=== PATIENT | male | born 1955 | race Caucasian/White ===

== ENCOUNTER 2022-12-03 10:13 | Emergency (ER) | payer MEDICAID, SELFPAY ==
[2022-12-03 10:14] VITALS: BP 119/75; PULSE 82; RESP 18; TEMP 36.4; O2SAT 95; BMI 26.1
[2022-12-03 10:34] VITALS: BP 137/77; PULSE 74; RESP 16; O2SAT 95
--- NOTE | 2022-12-03 10:38 | EKG12_ITS ---
Test Reason : GEN ILLNESS Blood Pressure : / mmHG Vent. Rate : 072 BPM Atrial Rate : 072 BPM P-R Int : 200 ms QRS Dur : 096 ms QT Int : 390 ms P-R-T Axes : 039 -39 046 degrees QTc Int : 427 ms Normal sinus rhythm Left axis deviation Abnormal ECG Confirmed by JOSE TROTTER, JOAN ([id number]), story editor ERYN GONZALEZ ([id number]) on 12/06/2022 9:18:26 AM Referred By: Confirmed By:JOAN GARCIA MD
--- NOTE | 2022-12-03 10:39 | EDS_ITS ---
HPI History of Present Illness Chief Complaint: General Illness Detail of Chief Complaint: Twitching in legs and numbness and tingling in legs Informant: patient and family Narrative Narrative: Bar presents to the emergency department with intermittent twitching in his legs from the knee down its been going on for about a month. Today he complains of some numbness and tingling in his legs. Back pain or back injury. Denies loss of bowel or bladder function. He denies weakness in the extremities. He denies recent illness although he did have COVID at the end of October. Patient denies any chest pain or shortness of breath. Patient has history of prediabetes. Patient does not speak much Upper Sorbian but his son is here to interpret for him. Prior similar symptoms: Yes PFSH PFSH Medical History no medical history Home Medications NK 12/03/22 [History Last Taken Unknown] Allergy/AdvReac Type Severity Reaction Status Date / Time No Known Allergies Allergy Verified 12/03/22 10:13 Surgical History no surgical history Social History Smoking Status: Never smoker ROS ROS ED Review of Systems ROS Unobtainable: other Constitutional Constitutional ED: Reports lethargy; Denies chills, fever(s), sweats or weight loss Eyes Eyes: Denies blurry vision, change in vision or diplopia ENT ENT ED: Denies rhinorrhea or sore throat Cardiovascular Cardiovascular: Denies chest pain, orthopnea or racing heartbeat Respiratory/Chest Respiratory/Chest: Denies cough, dyspnea, dyspnea on exertion, orthopnea or sputum Gastrointestinal Gastrointestinal: Denies abdominal pain, diarrhea, nausea or vomiting Genitourinary Genitourinary ED: Denies dysuria, hematuria or urinary frequency Musculoskeletal Musculoskeletal: Denies arthralgias, back pain, myalgias or neck pain Integumentary Denies abscess, Abrasions or rash Neurologic Neurologic: Reports paresthesias; Denies headache(s) or weakness Psychiatric Psychiatric: Denies anxiety, depression or suicidal thoughts Endocrine Endocrinology: Denies polydipsia, polyphagia or polyuria Hematologic/Lymphatic Hematologic/Lymphatic: Denies easy bleeding, easy bruising or lymphadenopathy Allergic/Immunologic Allergic/Immunologic ED: Denies mouth swelling, tongue swelling or urticaria EXAM Physical Exam Const Vital Signs: 12/03/22 10:14 12/03/22 10:34 12/03/22 10:35 Temperature 97.6 F L Temperature Source Temporal Pulse Rate 82 74 Respiratory Rate 18 16 Respiratory Effort Normal Non-Labored Blood Pressure 119/75 137/77 H Blood Pressure Mean 89 97 Pulse Ox 95 95 Oxygen Delivery Method Room Air Room Air Positive well nourished and well developed General Appearance ED: well developed and NAD HEENT Reports TM's clear and moist mucous membranes normocephalic and atraumatic; Negative for trauma or tenderness Tympanic Membrane ED: Yes TM's clear Eyes PERRL and EOMs intact bilaterally General Eye ED: Negative for pale conjunctiva or scleral icterus Neck no lymphadenopathy, supple and no JVD General: Negative for tenderness Chest Wall inspection of chest normal and palpation of chest normal Chest: Negative for tenderness Resp normal respiratory effort and clear to auscultation bilaterally Effort and Inspection: Negative for respiratory distress or pain with movement Auscultation: Negative for rhonchi, wheezes or diminished lung sounds Cardio regular rate, regular rhythm, S1 normal heart sound, S2 normal heart sound and no murmurs Peripheral Pulses: pulses 2+ throughout GI normal to inspection, nondistended, normoactive bowel sounds, soft to palpation, non-tender, non-distended and no masses Back/Spine no CVA tenderness and no thoracic nor lumbar tenderness Extremity Extremity Narrative: Patient has intermittent fasciculations noted in the right calf. Patient has normal sensation to light touch. Patient has normal pulses. Patient has normal range of motion in his feet and toes. Deep tendon reflexes are plus 2 out of 4 bilaterally at the patella and Achilles. Patient has normal L5 extension bilaterally. General Extremety ED: Negative for edema General Extremity: Negative for edema Neuro oriented x3, CN's II-XII intact bilaterally, no sensory deficits noted and gait normal Sensorium / Orientation: awake, alert, oriented to person, oriented to place and oriented to time Motor Exam: strength 5/5 throughout and strength abnormal Psych mental status grossly normal Skin no rashes or lesions noted and no wounds MDM MDM MDM Narrative Medical decision making narrative: Patient had basic labs obtained on arrival and showed a normal white count and normal hemoglobin. Patient had chemistries that were unremarkable with a normal potassium and normal magnesium as well as normal calcium. Glucose was slightly elevated 124. Venous Dopplers obtained were negative for DVT. This point etiology of his paresthesias unclear although he did have COVID recently so its possible he may have neuropathy related to prior COVID infection. Also he has borderline diabetes and entertain possibility of neuropathy related to diabetes although I suspect this is less likely given his numbers. This point patient will be referred to neurology for follow-up. He has no signs of cauda equina or evidence of weakness to the extremities. Patient will be discharged home in stable condition. Lab Data Attestation: I reviewed the patient's lab results. Labs: Laboratory Results - last 24 hr 12/03/22 12/03/22 12/03/22 10:35 10:35 10:35 WBC 6.2 RBC 5.24 Hgb 15.5 Hct 46.5 MCV 88.7 MCH 29.6 MCHC 33.3 RDW Std Deviation 41.9 RDW Coeff of Peggy 12.9 Plt Count 196 MPV 9.9 Immature Gran % (Auto) 0.200 Neut % (Auto) 44.9 L Lymph % (Auto) 43.7 H Robertson % (Auto) 8.1 Eos % (Auto) 2.6 Baso % (Auto) 0.5 Absolute Neuts (auto) 2.8 Absolute Lymphs (auto) 2.70 Nucleated RBC % 0 D-Dimer Quant (PE/DVT) < 0.27 L Sodium 141 Potassium 4.3 Chloride 106 Carbon Dioxide 27.0 Anion Gap 8 BUN 18 Creatinine 1.24 Estim Creat Clear Calc 56.69 Est GFR (MDRD) Af Amer 75 Est GFR (MDRD) Non-Af 62 BUN/Creatinine Ratio 14.5 Glucose 124 H Calcium 9.4 Magnesium 2.2 Total Creatine Kinase 129 EKG Initial EKG: Attestation: I personally reviewed and interpreted this EKG as follows: Comments: Sinus rhythm with a rate of 72 bpm with no evidence of peaked T waves or U waves. No acute process otherwise noted Discharge Plan Triage Chief Complaint: General Illness ED Provider: Yesi Mccoy Dx/Rx/DC Orders Clinical Impression: Paresthesias, Neuropathy Instructions: Treating Peripheral Neuropathy, ED Paraesthesias Prescriptions: No Action NK Primary Care Provider: Care Physician,No Primary Referrals: Yinka Fletcher MD [Non-Staff -Ordering Privileges] - 3-5 Days Care Physician,No Primary [Primary Care Provider] - Disposition Disposition: Home, Self Care
[2022-12-03 10:50] LABS: Absolute Neutrophil Count 2.8 X10^3/uL (2.0-7.7); Basophil# 0.03 X10^3/uL; Basophil% 0.5 % (0-1); Eosinophil# 0.16 X10^3/uL; Eosinophils% 2.6 % (0-5); Hematocrit 46.5 % (40-54); Hemoglobin 15.5 g/dL (13.0-16.5); Lymphocyte % 43.7 % (19-41); Mean Corp Hgb Conc 33.3 g/dL (32-36); Mean Corpuscular Hgb 29.6 pg (27.0-32.0); Mean Corpuscular Volume 88.7 fL (80-94); Mean Platelet Vol. 9.9 fl (6.2-12.0); Monocyte% 8.1 % (0-10); NRBC Flagged by Analyzer 0 % (0-5); Neutrophil # 2.78 X10^3/uL (2.7-7.7); Neutrophil % 44.9 % (47-70); Platelet Count 196 K/mm3 (150-450); RBC Distribution Width CV 12.9 % (11.6-14.6); RBC Distribution Width SD 41.9 fl (35.1-43.9); Red Blood Count 5.24 M/mm3 (4.6-6.2); White Blood Count 6.2 K/mm3 (4.4-11.0)
[2022-12-03 11:06] LABS: Anion Gap 8 (5-15); BUN 18 mg/dL (7-18); BUN/Creat Ratio 14.5 RATIO (10-20); CPK Total, Creatine Kinase 129 U/L (39-308); Calcium,Total 9.4 mg/dL (8.5-10.1); Chloride 106 mmol/L (98-107); Creatinine, Serum 1.24 mg/dL (0.70-1.30); EST Glomerular Filtration Rate 62 mL/min (>60); Est Glom Filt Rate - Afr Amer 75 mL/min (>60); Estimated Creatinine Clearance 56.69 ml/min; Glucose 124 mg/dL (74-106); Magnesium 2.2 mg/dL (1.6-2.6); Potassium 4.3 mmol/L (3.5-5.1); Sodium Level 141 mmol/L (136-145)
[2022-12-03] MEDS: 0.9% Normal Saline 1,000 ML 150 ML IV (11:14)
[2022-12-03 11:21] LABS: D-Dimer Quantitative (DVT/PE) < 0.27 FEU/ug/m (0.27-0.49)
--- NOTE | 2022-12-03 11:41 | VDLE_ITS ---
Reason For Study: LEG PAIN RIGHT LEFT GSV is normal. GSV is normal. CFV is compressible, spontaneous, competent CFV is compressible, spontaneous, phasic, and demonstrates pulsatile venous flow. competent, and demonstrates normal FV is compressible, spontaneous, competent augmentation. and demonstrates pulsatile venous flow. FV is compressible, spontaneous, phasic, POP V is compressible, spontaneous, competent competent and demonstrates normal and demonstrates pulsatile venous flow. augmentation. T/P Trunk is compressible. POP V is compressible, spontaneous, competent PTV is compressible. and demonstrates pulsatile venous flow. RT PerV is compressible. T/P Trunk is compressible. Procedure PTV is compressible. This is a venous duplex using B-mode, color LT PerV is compressible. flow and spectral Doppler. Exam performed portable in ED. The exam was diagnostic. A preliminary report was called and/or faxed to ED RN. VL/Venous Duplex US - Star Extrem Interpretation Summary No evidence for acute deep venous thrombosis bilateral lower extremities with p atent and compressible bilateral great saphenous veins. Pulsitile venous flow is noted bi laterally consistent with proximal venous hypertension or obstruction,clinical correlation would be appropriate. Ordering Physician: Yesi Mccoy Referring Physician: N/A Performed By: Stuart Isabel RVT
--- NOTE | 2022-12-03 13:09 | CM.ED ---
SW Note Referral Source: Case Find Referral Reason: No Primary Care Physician (PCP) SW reviewed chart and noted that patient has no PCP. SW provided patient with list of [facility] and [facility] Physician List for reference. SW also provided patient with handout ?Where to go When?. No other issues or concerns voiced at this time. SW remains available for any additional needs. Plan: Provided patient with PCP information Lana GUADALUPE
[2022-12-03 13:20] VITALS: BP 146/88; PULSE 74
== END 2022-12-03 13:20 | disposition home or self-care (01) ==
PROVIDERS: Emergency Provider Emergency Medicine; Visit Provider Emergency Medicine
DX: G62.9 Polyneuropathy, unspecified (principal); M79.604 Pain in right leg; M79.605 Pain in left leg; R73.03 Prediabetes; Z86.16 Personal history of COVID-19
CPT/HCPCS: 80048; 82550; 83735; 85025; 85379; 93005; 93970; 96360; 96361; 99284; J7030

== ENCOUNTER → 2023-07-15 | Outpatient (CLI) | payer MEDICAID, SELFPAY ==
[2023-07-15 10:08] LABS: Erythrocyte Sedimentation Rate 3 mm/hr (0-20)
[2023-07-15 10:09] LABS: Hematocrit 46.7 % (40-54); Hemoglobin 15.7 g/dL (13.0-16.5); Mean Corp Hgb Conc 33.6 g/dL (32-36); Mean Corpuscular Hgb 30.4 pg (27.0-32.0); Mean Corpuscular Volume 90.5 fL (80-94); Mean Platelet Vol. 9.6 fl (6.2-12.0); Platelet Count 190 K/mm3 (150-450); RBC Distribution Width CV 12.8 % (11.6-14.6); RBC Distribution Width SD 42.5 fl (35.1-43.9); Red Blood Count 5.16 M/mm3 (4.6-6.2); White Blood Count 4.7 K/mm3 (4.4-11.0)
[2023-07-15 10:33] LABS: Vitamin B12 848 pg/mL (211-911)
[2023-07-15 10:55] LABS: ALB/GLOB Ratio 1.1 RATIO (0.9-2.4); AST(SGOT) 16 U/L (15-37); Alanine Aminotransfer ALT/SGPT 23 U/L (16-61); Albumin, Serum 3.9 g/dL (3.2-5.0); Alkaline Phosphatase 53 U/L (45-117); Anion Gap 6 (5-15); BUN 14 mg/dL (7-18); BUN/Creat Ratio 14.8 RATIO (10-20); CPK Total, Creatine Kinase 134 U/L (39-308); Calcium,Total 9.2 mg/dL (8.5-10.1); Chloride 106 mmol/L (98-107); Creatinine, Serum 0.95 mg/dL (0.70-1.30); EST Glomerular Filtration Rate 84 mL/min (>60); Est Glom Filt Rate - Afr Amer 102 mL/min (>60); Globulin 3.4 g/dL (2.2-4.2); Glucose 128 mg/dL (74-106); Phosphorus 3.1 mg/dL (2.5-4.9); Potassium 4.1 mmol/L (3.5-5.1); Protein, Total 7.3 g/dL (6.4-8.2); Sodium Level 140 mmol/L (136-145); Thyroid Stim Hormone (TSH) 1.17 uIU/mL (0.358-3.74)
[2023-07-15 11:11] LABS: Hemoglobin A1c 5.9 % (3.8-5.6)
[2023-07-20 12:09] LABS: Myoglobin, Serum 34 ng/mL (28-72); Vitamin B1, Thiamine 105.1 nmol/L (66.5-200.0)
== END | disposition home or self-care (01) ==
LOC: MTLAB 09:27
PROVIDERS: Referring Provider Psychiatry & Neurology Neurology; Visit Provider Psychiatry & Neurology Neurology
DX: R25.3 Fasciculation (principal); R73.9 Hyperglycemia, unspecified
CPT/HCPCS: 36415; 80053; 82085; 82550; 82607; 82746; 83036; 83874; 84100; 84425; 84443; 85027; 85652

== ENCOUNTER → 2023-08-10 | Outpatient (CLI) | payer MEDICAID, SELFPAY ==
--- NOTE | 2023-08-10 14:14 | NEURO_ITS ---
NCS and/or EMG Patient Report Ordering Doctor: Yinka Fletcher DATE OF SERVICE: 08/10/23 Fabrice presents electrodiagnostic testing of the lower limbs. He reports muscle spasms in the legs with muscle fatigue. He reports intermittent numbness and tingling. Electrodiagnostic findings: Left peroneal motor nerve demonstrates prolonged distal latency with reduced amplitude and reduced conduction velocity. Right peroneal motor nerve demonstrates normal distal latency, amplitude with reduced conduction velocity. Borderline reduced tibial motor conduction velocity is noted bilaterally. Sensory responses are within normal limits. Prolonged right H reflex. Prolonged left tibial and peroneal F waves. Prolonged right tibial F wave. Needle EMG testing was performed in the lower limbs. There was no evidence of fibrillations or positive sharp waves. Fasciculations were not identified. Motor unit action potentials are of normal amplitude and duration. Electrodiagnostic assessment: This is an abnormal study in the lower limbs. 1. Electrodiagnostic findings suggestive of peripheral polyneuropathy, primar kelsy with motor nerve involvement. There is a combination of axonal loss and demyelination. 2. No electrodiagnostic evidence is noted for lumbosacral radiculopathy. 3. No electrodiagnostic evidence for myopathy. Multi Select Codes Neurology Neurology Interp Codes: 07107-54 Musc test done w/n test comp (interp) (2) and 66673-05 Nrv cndj test 9-10 studies (interp)
== END | disposition home or self-care (01) ==
PROVIDERS: Referring Provider Psychiatry & Neurology Neurology; Visit Provider Psychiatry & Neurology Neurology
DX: R25.3 Fasciculation (principal)
CPT/HCPCS: 95886; 95911

== ENCOUNTER → 2024-07-27 | Outpatient (CLI) | payer MEDICAID, SELFPAY ==
[2024-07-27 12:19] LABS: Absolute Lymphocyte Count 2.13 X10^3/uL (0.83-4.51); Absolute Neutrophil Count 3.4 X10^3/uL (2.0-7.7); Basophil# 0.03 X10^3/uL; Basophil% 0.5 % (0-1); Eosinophil# 0.08 X10^3/uL; Eosinophils% 1.3 % (0-5); Hematocrit 45.3 % (40-54); Lymphocyte # 2.13 X10^3/ul (0.83-4.51); Lymphocyte % 35.2 % (19-41); Mean Corp Hgb Conc 33.1 g/dL (32-36); Mean Corpuscular Hgb 29.9 pg (27.0-32.0); Mean Corpuscular Volume 90.2 fL (80-94); Mean Platelet Vol. 10.5 fl (6.2-12.0); Monocyte# 0.42 X10^3/uL; Monocyte% 6.9 % (0-10); NRBC Flagged by Analyzer 0 % (0-5); Neutrophil # 3.37 X10^3/uL (2.7-7.7); Neutrophil % 55.8 % (47-70); Platelet Count 201 K/mm3 (150-450); RBC Distribution Width CV 13.1 % (11.6-14.6); Red Blood Count 5.02 M/mm3 (4.6-6.2); White Blood Count 6.1 K/mm3 (4.4-11.0)
[2024-07-27 12:47] LABS: ALB/GLOB Ratio 1.2 RATIO (0.9-2.4); AST(SGOT) 14 U/L (15-37); Alanine Aminotransfer ALT/SGPT 23 U/L (16-61); Albumin, Serum 3.8 g/dL (3.2-5.0); Alkaline Phosphatase 43 U/L (45-117); Anion Gap 7 (5-15); BUN 14 mg/dL (7-18); Chloride 104 mmol/L (98-107); Creatinine, Serum 0.87 mg/dL (0.70-1.30); EST Glomerular Filtration Rate 92 mL/min (>60); Est Glom Filt Rate - Afr Amer 112 mL/min (>60); Globulin 3.2 g/dL (2.2-4.2); Glucose 113 mg/dL (74-106); Potassium 4.1 mmol/L (3.5-5.1); Sodium Level 138 mmol/L (136-145); T4 Free Direct 1.02 ng/dL (0.76-1.46)
[2024-07-27 14:05] LABS: Vitamin B12 642 pg/mL (211-911); Vitamin D,25 Hydroxy 24.3 ng/mL
[2024-07-30 12:08] LABS: Vitamin D 1,25-Dihydroxy 51.1 pg/mL (24.8-81.5)
== END | disposition home or self-care (01) ==
LOC: MTLAB 10:15
PROVIDERS: Referring Provider Physician Assistant; Visit Provider Physician Assistant
DX: L80 Vitiligo (principal)
CPT/HCPCS: 36415; 80053; 82306; 82607; 82652; 84439; 84443; 85025